=== PATIENT | male | born 1980 | race Caucasian/White ===

== ENCOUNTER 2017-09-03 08:41 | Inpatient (IN) ==
--- NOTE | 2017-09-03 09:40 | Emergency Department Note ---
Disposition Clinical Impression: Cellulitis of foot Disposition: Admitted As Inpatient Condition: Fair Extremity Problem HPI - General Chief complaint: ED Extremity Problem,Nontraumatic Stated complaint: Left Foot problem Time Seen by Provider: 09/03/17 09:14 Source: patient Mode of arrival: ambulatory Limitations: no limitations Nursing Notes Reviewed: Yes Vital Signs Reviewed: Yes - History of Present Illness HPI Narrative: 46-year-old diabetic comes in with left foot pain and redness. He developed a pustule on the sole of the foot out over the heads of the fourth and fifth metatarsals. Also has redness going up the sole of the foot towards the arch. 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 Consistency: constant Injury Location: left, lower extremity Pain Scale: 6 Quality: burning, aching Radiation: none Improves with: nothing Worsens with: weight bearing Associated symptoms: Reports: denies other symptoms - Related Data Home Medications Medication Instructions Recorded Confirmed Lisinopril [Zestril] 10 mg PO DAILY 07/10/16 09/03/17 Sitagliptin Phos/Metformin HCl 1 each PO DAILY 07/10/16 09/03/17 [Janumet 50-1,000 mg Tablet] Insulin Glargine/Lixisenatide 20 units SQ BID 09/03/17 09/03/17 [Soliqua 100 Unit-33 Mcg/ml Pen] Insulin LISPRO [Humalog Kwikpen 0 unit SQ AD 09/03/17 09/03/17 U-100] Allergies Allergy/AdvReac Type Severity Reaction Status Date / Time No Known Allergies Allergy Verified 09/03/17 08:45 All systems ED: reviewed and negative except as stated. Constitutional: Denies: fever, chills, weakness, weight change Eyes: Denies: eye pain, eye discharge, vision change ENT ED: Denies: ear pain, throat pain, dental pain, hearing loss, epistaxis, congestion, dysphagia Cardiovascular: Denies: chest pain, palpitations, dyspnea on exertion, edema, syncope Respiratory: Denies: cough, dyspnea, wheezes, hemoptysis, stridor Gastrointestinal: Denies: abdominal pain, nausea, vomiting, diarrhea, constipation, hematemesis, melena, hematochezia Genitourinary: Denies: urgency, dysuria, frequency, hematuria Musculoskeletal: Reports: arthralgia. Denies: back pain, neck pain, myalgia Integumentary: Denies: rash, abrasion, lesions Neurological: Denies: headache, weakness, numbness, paresthesias, confusion, abnormal gait, vertigo Psychiatric: Denies: anxiety, depression, suicidal thoughts, homicidal thoughts , auditory hallucinations, visual hallucinations Endocrine: Denies: fatigue Hematological/Lymphatic: Denies: easy bleeding, easy bruising Allergic/Immunologic: Denies: facial swelling, urticaria Past Medical History - Past Medical History Medical history: Reports: diabetes, hypertension Psychiatric history: Reports: no psych history - Social History Smoking Status: Never smoker Smokeless Tobacco Status: Yes Alcohol use: Reports: none Drug use: Reports: none Physical Exam - General Limitations: no limitations General appearance: alert, in no apparent distress - Head Head exam: atraumatic, normocephalic, normal inspection - Eye Eye exam: Present: normal appearance, PERRL, EOMI - ENT ENT exam: normal exam, normal oropharynx, mucous membranes moist - Neck Neck exam: Present: normal inspection, full ROM, trachea midline - Chest Chest inspection: Present: normal inspection, symmetric chest wall rise - Respiratory Respiratory exam: Present: normal lung sounds bilaterally - Cardiovascular Cardiovascular exam: Present: regular rate, normal rhythm, normal heart sounds - Abdominal Exam Abdominal exam: Present: soft, Non-Tender. Absent: tenderness, distention, guarding, rebound, rigidity - Expanded Lower Extremity Exam Foot/toe exam: Present: other (Pustule over the fourth and fifth heads of the metatarsals. Redness extending up the arch of the foot toward the ankle.) Neurovascular/Tendon exam: Absent: motor deficit, sensory deficit, tendon deficit Gait: not tested/not observed - Back Exam Back exam: Present: normal inspection, full ROM. Absent: tenderness - Neurological Exam Neurological exam: Present: alert, oriented X3 - Psychiatric Psychiatric exam: Present: normal affect, normal mood - Skin Skin exam: Present: warm, dry, intact, normal color Course Vital Signs Temperature 97.8 F 09/03/17 08:41 Pulse Rate 100 09/03/17 08:41 Respiratory Rate 18 09/03/17 08:41 Blood Pressure 146/97 09/03/17 08:41 O2 Sat by Pulse Oximetry 97 09/03/17 08:41 Temperature 97.3 F L 09/03/17 14:54 Pulse Rate 91 09/03/17 14:54 Respiratory Rate 18 09/03/17 14:54 Blood Pressure 126/71 09/03/17 14:54 O2 Sat by Pulse Oximetry 95 09/03/17 14:54 Oxygen Delivery Oxygen Delivery Room Air Extremity Problem, Nontraumati - Lab Data Result diagrams: 09/03/17 09:36 09/03/17 09:36 Lab Results 09/03/17 09/03/17 09/03/17 Range/Units 09:36 09:36 09:36 WBC 13.7 H (4.3-11.1) K/mcL RBC 5.41 (4.19-5.50) M/mcL Hgb 14.5 (12.9-16.9) g/dL Hct 43.5 (37.5-50.1) % MCV 80.4 L (83.0-100.0) fL MCH 26.8 L (28.0-33.3) pg MCHC 33.3 (31.6-35.5) g/dL RDW 13.0 (11.5-14.5) % Plt Count 280 (140-400) K/mcL MPV 9.4 (9.4-12.4) fL Immature Gran % 0.4 (0-4) % Seg Neutrophils % 71.7 % Lymphocytes % 18.3 % Monocytes % 8.9 % Eosinophils % 0.4 % Basophils % 0.3 % Neutrophils # 9.8 H (1.6-8.9) K/mcL Lymphocytes # 2.5 (0.6-4.6) K/mcL Monocytes # 1.2 (0.0-1.3) K/mcL Eosinophils # 0.1 (0.0-0.6) K/mcL Basophils # 0.0 (0.0-0.2) K/mcL ESR 79 H (0-10) mm/hr Sodium 135 L (136-145) mEq/L Potassium 4.2 (3.5-5.1) mEq/L Chloride 103 (98-107) mEq/L Carbon Dioxide 27 (23-29) mEq/L BUN 14 (6-20) mg/dL Creatinine 0.74 (0.70-1.30) mg/dL Est GFR ( Amer) > 60 (> 60) Est GFR (Non-Af Amer) > 60 (> 60) BUN/Creatinine Ratio 19 (6-26) Glucose 151 H (70-105) mg/dL POC Glucose (58-89) Calculated Osmolality 283 (280-300) Lactic Acid (0.5-2.2) mmol/L Calcium 9.3 (8.6-10.3) mg/dL 09/03/17 09/03/17 Range/Units 11:08 16:32 WBC (4.3-11.1) K/mcL RBC (4.19-5.50) M/mcL Hgb (12.9-16.9) g/dL Hct (37.5-50.1) % MCV (83.0-100.0) fL MCH (28.0-33.3) pg MCHC (31.6-35.5) g/dL RDW (11.5-14.5) % Plt Count (140-400) K/mcL MPV (9.4-12.4) fL Immature Gran % (0-4) % Seg Neutrophils % % Lymphocytes % % Monocytes % % Eosinophils % % Basophils % % Neutrophils # (1.6-8.9) K/mcL Lymphocytes # (0.6-4.6) K/mcL Monocytes # (0.0-1.3) K/mcL Eosinophils # (0.0-0.6) K/mcL Basophils # (0.0-0.2) K/mcL ESR (0-10) mm/hr Sodium (136-145) mEq/L Potassium (3.5-5.1) mEq/L Chloride (98-107) mEq/L Carbon Dioxide (23-29) mEq/L BUN (6-20) mg/dL Creatinine (0.70-1.30) mg/dL Est GFR ( Amer) (> 60) Est GFR (Non-Af Amer) (> 60) BUN/Creatinine Ratio (6-26) Glucose (70-105) mg/dL POC Glucose 140 H (58-89) Calculated Osmolality (280-300) Lactic Acid 0.9 (0.5-2.2) mmol/L Calcium (8.6-10.3) mg/dL
[2017-09-03 09:48] LABS: Basophils % 0.3 %; Eosinophils # 0.1 K/mcL (0.0-0.6); Eosinophils % 0.4 %; Hematocrit 43.5 % (37.5-50.1); Hemoglobin 14.5 g/dL (12.9-16.9); Immature Granulocytes % 0.4 % (0-4); Lymphocytes # 2.5 K/mcL (0.6-4.6); Lymphocytes % 18.3 %; Mean Corpuscular HGB Conc 33.3 g/dL (31.6-35.5); Mean Corpuscular Hemoglobin 26.8 pg (28.0-33.3); Mean Corpuscular Volume 80.4 fL (83.0-100.0); Mean Platelet Volume 9.4 fL (9.4-12.4); Monocytes # 1.2 K/mcL (0.0-1.3); Monocytes % 8.9 %; Neutrophils # 9.8 K/mcL (1.6-8.9); Platelet Count 280 K/mcL (140-400); Red Blood Count 5.41 M/mcL (4.19-5.50); Segmented Neutrophils % 71.7 %
[2017-09-03 10:08] LABS: BUN/Creatinine Ratio 19 (6-26); Blood Urea Nitrogen 14 mg/dL (6-20); Calcium 9.3 mg/dL (8.6-10.3); Carbon Dioxide 27 mEq/L (23-29); Chloride 103 mEq/L (98-107); Glucose 151 mg/dL (70-105); Osmolality,Calculated 283 (280-300); Potassium 4.2 mEq/L (3.5-5.1); Sodium 135 mEq/L (136-145); eGFR For African Americans > 60 (> 60); eGFR For Non-African Americans > 60 (> 60)
[2017-09-03] MEDS ORDERED: Vancomycin 1,000 MG in D5% in Water 250 ML IVPB ONE (11:17)
[2017-09-03] MEDS ORDERED: Naloxone 0.4 MG/ML INJ IVP PRN (12:16)
[2017-09-03] MEDS ORDERED: Dextrose Gel 15 GM/37.5 ML TUBE PO PRN ×2 (12:16)
[2017-09-03] MEDS ORDERED: Ibuprofen 400 MG TABLET PO PRN (12:16)
[2017-09-03] MEDS ORDERED: *HR* Dextrose 50 % in Water (Syg) 50 ML SYRINGE IVP PRN (12:16)
[2017-09-03] MEDS ORDERED: D5% in Water 1,000 ML IVC PRN (12:16)
[2017-09-03] MEDS ORDERED: *HR* HYDROcodone/Acet 5/325 mg TABLET PO PRN (12:16)
--- NOTE | 2017-09-03 12:24 | Internal Med History&Physical ---
<Fransisco Tate - Last Filed: 09/03/17 12:22> Date of Encounter: 09/03/17 Time of Encounter: 12:22 Assessment and Plan (1) Cellulitis of fifth toe of left foot Current visit: Yes Status: Acute H/O chronic Lt foot ulcer of fourth metatarsal to complications from poorly controlled diabetes. He is being followed and managed by Dr. wild. Presents today with new ulceration of the 5th metatarsal with cellulitis extending into the arch of the foot. He was recently placed on Keflex for cellulitis of Lt foot/calve and reports only temporary resolution of symptoms. However, the cellulitis has now returned and is worsening. Additionally, he present today with leukocytosis, tachycardia. He appears to be septic. -blood cultures x 2 now -wound cultures x 2 -Consult Dr. Wild- ED physician reported that they spoke with Dr. Wild who has agreed to see the patient; will need I&D -Start emperic ATB vanc and zosyn -Stat lactic acid (2) Sepsis Current visit: Yes Status: Acute See plan above Qualifiers: Sepsis type: sepsis due to unspecified organism Qualified Code(s): A41.9 - Sepsis, unspecified organism (3) Diabetes Current visit: Yes Status: Acute History of type 2 diabetes. Diabetes is poorly controlled with most recent hemoglobin A1c on 04/28 of 11.7. Presents today with chronic foot ulcers and consultations of diabetes. 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 Continue lisinopril. Qualifiers: Hypertension type: essential hypertension Qualified Code(s): I10 - Essential (primary) hypertension (5) DVT prophylaxis Current visit: Yes Status: Acute Heprin 5000 units SC BID Internal Medicine - H&P: HPI Chief complaint: Lt foot cellulitis Admitted From: Home Plans for Post Hospital Care: Home History of present illness: Mr. Aguilra is a 36 year old male with a PMH of DM, and HTN. No prior h/o MRSA. He presents to [facility] today with Lt foot pain/tenderness and redness. He reports that he has had a chronic wound on the left 4th metatarsal that Dr. wild has been managing. He Reports a debridement was completed on the fourth metatarsal and he was okayed to return to work. However, upon return to work he began experiencing an increase in pain and swelling extending into the fourth and fifth metatarsal as well as going up his sole and towards the arch of the foot. He denies any fever, chills, joint aches or pains, Swelling or tenderness. Additionally, he denies any drainage. X-ray of left foot performed in the emergency department negative for acute osseous abnormalities. Patient has leukocytosis and tachycardia and cellulitis and concern he may be septic. He is being admitted for further monitoring and administration of IV antibiotic therapy as well as potential incision and drainage of chronic left foot wound. Past Med Surg Social Fam HX - Past Medical History Medical history: diabetes, hypertension Psychiatric history: no psych history - Social History Smoking Status: Never smoker Smokeless Tobacco Status: Yes Alcohol use: none Drug use: none - Family History Mother Hx Family Endocrine Disorder: Yes (Diabetes) Internal Medicine - H&P: Meds Lisinopril [Zestril] 10 mg PO DAILY 07/10/16 [History] Sitagliptin Phos/Metformin HCl [Janumet 50-1,000 mg Tablet] 1 each PO DAILY [History] Insulin Glargine/Lixisenatide [Soliqua 100 Unit-33 Mcg/ml Pen] 20 units SQ BID 09/03/17 [History] Insulin LISPRO [Humalog Kwikpen U-100] 0 unit SQ AD 09/03/17 [History] 3 Allergy/AdvReac Type Severity Reaction Status Date / Time No Known Allergies Allergy Verified 09/03/17 08:45 All Systems PM: A 10-system review of systems was performed and is negative for pertinent findings except as documented above in the HPI. - Constitutional Constitutional: no chills, no fever(s), no night sweats - EENT Eyes: no change in vision, no discharge, no pain, no photophobia Ears: no ear discharge, no ear pain, no tinnitus Nose, mouth and throat: no dysphagia, no nasal discharge, no neck pain, no sore throat - Cardiovascular Cardiovascular ROS IM: no chest pain, no diaphoresis, no dyspnea, no lightheadedness, no palpitations, no syncope - Respiratory Respiratory: no cough, no dyspnea, no wheezing, no excessive phlegm production - Gastrointestinal Gastrointestinal: no abdominal pain, no diarrhea, no hematemesis, no hematochezia, no melena, no nausea, no vomiting - Musculoskeletal Musculoskeletal ROS IM: as per HPI, no joint swelling, no muscle weakness, no myalgias, no numbness, no tingling - Integumentary Integumentary IM: as per HPI, erythema, new lesions, non-healing lesions, skin ulcer, sores, no pruritus, no rash, no unusual bruising - Neurological Neurological ROS: no confusion, no convulsions, no focal weakness, no numbness, no tingling, no tremor(s) - Hematologic/Lymphatic Hematologic/Lymphatic: no easy bruising - Constitutional Vitals: Temp Pulse Resp BP Pulse Ox 97.8 F 100 18 146/97 97 09/03/17 08:41 09/03/17 08:41 09/03/17 08:41 09/03/17 08:41 09/03/17 08:41 General appearance: Present: cooperative, A&O X 3, no acute distress, answers questions appropriately - Head Head exam: Present: atraumatic, normocephalic - Eye Eye exam: Present: PERRL, conjuntiva pink, sclera anicteric Pupils: Present: PERRL - Neck Neck exam general surgery: Present: supple, trachea midline. Absent: lymphadenopathy - Respiratory Respiratory exam: Present: CTAB. Absent: accessory muscle use, rales, rhonchi, wheezes - Cardiovascular Cardiovascular exam: Present: RRR, +S1, +S2. Absent: diastolic murmur, gallop, rubs, systolic murmur - GI/Abdominal GI/Abdominal exam: Present: normal bowel sounds, soft, no peritoneal signs. Absent: distended, tenderness - Extremities Exam Extremities exam: Present: normal capillary refill, tenderness (Lt foot), warm, radial pulses palpable and symmetrical. Absent: calf tenderness, cyanotic, pedal edema - Expanded Lower Extremities Exam Foot/Toe exam: Present: erythema, swelling, tenderness, tenderness at base of 5th metatarsal (as well as erythema, and swelling; fluid filled ulceration at base of 5th metatarsal). Absent: normal inspection 1 - Fluid filled ulceration at base of 5th metatarsal. In addition, there is erythema, swelling extending into the left arch. There is also a chronic healing ulcer fourth metatarsal ulcer which she has undergone previous debridement. Cannulation present on fourth metatarsal ulcer - Neurological Exam Neurological exam: Present: CN II-XII intact, oriented X3, no focal deficits. Absent: pronater drift, facial droop, speech deficit - Skin Skin exam: Present: dry, erythema Internal Med - H&P Results - Labs CBC & Chem 7: 09/03/17 09:36 09/03/17 09:36 - Impressions Impressions Foot X-Ray 09/03/17 09:15 IMPRESSION: 1. No acute osseous abnormality involving the left foot. D/ / Reynaldo Narayanan MD / Reynaldo Narayanan MD Interpreting Provider: Reynaldo Narayanan MD <Scott Patton T - Last Filed: 09/03/17 13:15> Date of Encounter: 09/03/17 Internal Medicine - H&P: HPI History of present illness: Mr. Aguilar is a 36 year old male All Systems PM: A 10-system review of systems was performed and is negative for pertinent findings except as documented above in the HPI. - Constitutional Vitals: Temp Pulse Resp BP Pulse Ox 97.8 F 100 20 148/84 97 09/03/17 08:41 09/03/17 08:41 09/03/17 13:07 09/03/17 13:07 09/03/17 08:41 Internal Med - H&P Results - Labs CBC & Chem 7: 09/03/17 09:36 09/03/17 09:36 - Attending Attestation Seen and examined independently Sepsis secondary to Left plantar surface cellulitis with abscess in an uncontrolled diabetic Agree with Zosyn/vanco for gram positive/Gram negative/anerobi and pseudomonas coverage. Podiatry for I and D and culture of pus-filled area. Hemodynamically stable Rest as in [employer] Fransisco Jaegers documentation
--- NOTE | 2017-09-03 17:01 | Podiatry Consult Note ---
Date of Encounter: 09/03/17 Time of Encounter: 15:40 Assessment and Plan (1) Diabetic foot ulcer Current visit: Yes Status: Acute Assessment: Chronic diabetic foot ulcer new new acute infection and cellulitis - tracked lesion medial to chronic lesion Plan: I&D complete at bedside of chronic ulceration and bulla to release drainage, assess underlying wound bed and allow for healing Wound bed clean, healthy granulation tissue noted There is cellulitis to mid foot but no noted areas of sinus tracts and tunneling and no fluctuance however we will continue to monitor- if worsening is noted we will obtain an MRI for further assessment Xray negative for any osseous involvement as noted below Currently receiving empiric zosyn and vancomycin - monitor kidney function Pending wound and blood cultures Pending response to therapy may need formal I&D in OR with . Daily dressing changes- flush with saline- adaptic, 4x4 and kerlex. Qualifiers: Diabetic foot ulcer location: other Diabetes mellitus type: type 2 Laterality: left Non-pressure ulcer stage: with fat layer exposed Qualified Code(s): E11.621 - Type 2 diabetes mellitus with foot ulcer; L97.522 - Non- pressure chronic ulcer of other part of left foot with fat layer exposed; L97.522 - Non-pressure chronic ulcer of other part of left foot with fat layer exposed; L97.522 - Non-pressure chronic ulcer of other part of left foot with fat layer exposed; L97.522 - Non-pressure chronic ulcer of other part of left foot with fat layer exposed (2) Cellulitis of fifth toe of left foot Current visit: Yes Status: Acute (3) Diabetes Current visit: Yes Status: Acute Qualifiers: Diabetes mellitus type: type 2 Diabetes mellitus complication status: with unspecified complications Diabetes mellitus detention insulin use: with detention use Qualified Code(s): E11.8 - Type 2 diabetes mellitus with unspecified complications; 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 Aguilar is a 36 year old male who we have been consulted on regarding an ulceration/cellulitis/bulla to the left foot. Patient is known to Dr.Sessions and podiatry. Patient has known hx of uncontrolled t2dm with neuropathy and charcot of the right foot and HTN. Patient has been under the care of podiatry since June 2017 and being treated for chronic ulcer of left foot sub mt head #5 and right foot charcot. Patient and patients state that wound was improved since offloading and being on keflex. Patients states that he came home from work yesterday and stated that he was having a lot of pain to his foot, states she looked and it looked normal, states that at bedtime he complained again that it was really hurting and she noted a blister and a red streak to his foot. Patient denies any fevers or chills. States pain is severe with palpation but has known hx of neuropathy- states his toes are numb but he does feel his midfoot- patient requesting ha1c be ordered and sent to PCP, states they have been after him to get it. Last a1c was 11.7 which was obtained in February of last year. Blood cultures and wound cultures were obtained in ED Patient was started on empiric Zosyn and Vancomycin Admit wbc 13.7 / neutrophils 9.8/ Temp 97.8 Past Med Surg Social Fam HX - Past Medical History Medical history: diabetes, hypertension Psychiatric history: no psych history - Social History Smoking Status: Never smoker Smokeless Tobacco Status: Yes Alcohol use: none Drug use: none - Family History Mother History Unknown: Yes Hx Family Endocrine Disorder: Yes Medications and Allergies Lisinopril [Zestril] 10 mg PO DAILY 07/10/16 [History] Sitagliptin Phos/Metformin HCl [Janumet 50-1,000 mg Tablet] 1 each PO DAILY [History] Insulin Glargine/Lixisenatide [Soliqua 100 Unit-33 Mcg/ml Pen] 20 units SQ BID 09/03/17 [History] Insulin LISPRO [Humalog Kwikpen U-100] 0 unit SQ AD 09/03/17 [History] 3 Allergy/AdvReac Type Severity Reaction Status Date / Time No Known Allergies Allergy Verified 09/03/17 08:45 All Systems Reviewed: A 10-system review of systems was performed and is negative for pertinent findings except as documented above in the HPI. Physical Exam - Constitutional Vitals: Temp Pulse Resp BP Pulse Ox 97.3 F L 91 18 126/71 95 01/23/18 14:54 09/03/17 14:54 09/03/17 14:54 09/03/17 14:54 09/03/17 14:54 Exam: Awake alert and oriented x3 Pulses palpable +2/4 DP/PT Warm toes to tibia Cap refill <3 seconds to all toes Mild edema- non pitting Upon inspection: Chronic ulceration sub mt head #5 left, surrounding hyperkeratosis to wound There is a new lesion just medial to chronic ulceration- bulla lesion- appearance of thick bloody fluid within. There is no open, freely draining wound. There is cellulitis extending from medially from lesion along plantar aspect of foot to arch of foot. There is warmth noted to this area. No palpable fluctance noted. Tenderness to palpation After I&D of chronic ulcer, hyperkeratosis and new bulla lesion there is connection and a tract from chronic to new lesion. There was a moderate amount of thick, gaytan, bloody fluid expressed from wound. No odor. No undermining, sinus tracts or tunneling noted toward medial foot. Wound bed under bulla measures 2.5cmx2.5cmx0.2cm with healthy granulation tissue- chronic wound bed 0.3cmx0.3cmx0.2cm tracking under small flap of attached skin to new bulla site. Results - Labs Result Diagrams: 09/04/17 03:49 09/04/17 03:49 Labs: Abnormal lab results WBC 13.7 K/mcL (4.3-11.1) H 09/03/17 09:36 MCV 80.4 fL (83.0-100.0) L 09/03/17 09:36 MCH 26.8 pg (28.0-33.3) L 09/03/17 09:36 Neutrophils # 9.8 K/mcL (1.6-8.9) H 09/03/17 09:36 ESR 79 mm/hr (0-10) H 09/03/17 09:36 Sodium 135 mEq/L (136-145) L 09/03/17 09:36 Glucose 151 mg/dL (70-105) H 09/03/17 09:36 POC Glucose 140 (58-89) H 09/03/17 16:32 All other labs normal. Consult Discharge Plan - Plan Referrals: Juan Kaufman MD [Primary Care Provider] -
--- NOTE | 2017-09-03 17:16 | Procedure Note ---
Date of procedure: 09/03/17 Pre-op diagnosis: diabetic foot ulcer Post-op diagnosis: same Procedure: Incision and drainage of bulla of left foot and debridement of hyperkeratotic skin surrounding ulceration sub mt head #5 Field was prepped Skin painted with betadine and allowed to dry Timeout taken- correct patient, foot, wound, no allergies Sharp debridement of all hyperkeratotic skin surrounding ulceration was complete using #15 blade- small sinus tract noted from ulcer extending into new bulla- not able to completely tract however there is easy expression of blood filled fluid from bulla into chronic ulceration Small incision made into devitalized tissue of bulla, expression of thick, gaytan , bloody fluid from wound. Devitalized tissue retracted using pickups and trimmed back using skin tissue nippers. All intact skin left in place. There is no noted undermining/sinus tracts to wound bed below bulla lesion. Scant serosang drainage to both wounds. No odor. Surrounding warmth and tenderness Patient tolerated well No complaints No bleeding at finish of procedure Cultures were already obtained in ED Flushed with saline, adaptic 4x4 and kerlex were applied. Monitor for any changes Anesthesia: none Surgeon: Caitlyn Pradhan Was there an dietitian assistant present: No Estimated blood loss (cc): 5 Specimen: release of gaytan bloody fluid- none sent- already obtained cultures Pathology: none sent Condition: stable Disposition: no change
[2017-09-03] MEDS: Piperacillin/Tazobactam 3.375 GM/200 ML BAG IVPB SCH ×2 (17:54→23:55)
[2017-09-03] MEDS: *HR* Heparin 5,000 UNIT/ML VIAL SQ SCH (17:55)
[2017-09-03] MEDS: Insulin LISPRO 300 UNITS/3 ML VIAL SQ SCH ×2 (17:57→22:15)
[2017-09-03] MEDS ORDERED: INSULIN GLARGINE SQ SCH (21:00)
[2017-09-03] MEDS ORDERED: LIXISENATIDE SQ SCH (21:00)
[2017-09-03] MEDS: Insulin DETEMIR 100 UNIT/ML X5UNITS SQ SCH (22:20)
[2017-09-04 04:59] LABS: Basophils # 0.1 K/mcL (0.0-0.2); Basophils % 0.4 %; Eosinophils # 0.1 K/mcL (0.0-0.6); Eosinophils % 0.8 %; Hematocrit 40.9 % (37.5-50.1); Hemoglobin 13.6 g/dL (12.9-16.9); Immature Granulocytes % 0.4 % (0-4); Lymphocytes # 3.6 K/mcL (0.6-4.6); Lymphocytes % 26.8 %; Mean Corpuscular HGB Conc 33.3 g/dL (31.6-35.5); Mean Corpuscular Hemoglobin 26.7 pg (28.0-33.3); Mean Corpuscular Volume 80.4 fL (83.0-100.0); Mean Platelet Volume 9.7 fL (9.4-12.4); Monocytes # 1.2 K/mcL (0.0-1.3); Neutrophils # 8.3 K/mcL (1.6-8.9); Platelet Count 253 K/mcL (140-400); Red Blood Count 5.09 M/mcL (4.19-5.50); Red Cell Distribution Width 12.9 % (11.5-14.5); Segmented Neutrophils % 62.6 %
[2017-09-04 05:25] LABS: BUN/Creatinine Ratio 14 (6-26); Blood Urea Nitrogen 12 mg/dL (6-20); Calcium 8.9 mg/dL (8.6-10.3); Carbon Dioxide 28 mEq/L (23-29); Chloride 103 mEq/L (98-107); Glucose 169 mg/dL (70-105); Osmolality,Calculated 288 (280-300); Potassium 3.7 mEq/L (3.5-5.1); Sodium 137 mEq/L (136-145); eGFR For African Americans > 60 (> 60); eGFR For Non-African Americans > 60 (> 60)
[2017-09-04] MEDS: *HR* Heparin 5,000 UNIT/ML VIAL SQ SCH ×2 (05:32→17:52)
[2017-09-04] MEDS: Insulin LISPRO 300 UNITS/3 ML VIAL SQ SCH ×4 (08:12→21:03)
[2017-09-04] MEDS: Piperacillin/Tazobactam 3.375 GM/200 ML BAG IVPB SCH ×3 (08:14→23:37)
--- NOTE | 2017-09-04 08:48 | Internal Med Progress Note ---
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 if his cellulites does not improve, will get a MRI of Foot to r/o Osteo / Abscess (2) Sepsis Current Visit: Yes Status: Acute Assessment and plan: He did meet mild sepsis / SIRS criteria with elevated WBC, source of inf as diabetic foot ulcer cont empirical abx Qualifiers: Sepsis type: sepsis due to unspecified organism Qualified Code(s): A41.9 - Sepsis, unspecified organism (3) Diabetes Current Visit: Yes Status: Acute Assessment and plan: Poorly controlled pt stated lately his BS are well controlled at home will f/u on HbA11C cont ISS + Levemir Qualifiers: Diabetes mellitus type: type 2 Diabetes mellitus complication status: with unspecified complications Diabetes mellitus halfway insulin use: with exterminator termite use Qualified Code(s): E11.8 - Type 2 diabetes mellitus with unspecified complications; Z79.4 - [facility] (current) use of insulin; 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 Aguilar is a 36 year old male with a PMH of DM, and HTN. No prior h/o MRSA. He presents to [facility] ER with Lt foot pain/tenderness and redness. He reports that he has had a chronic wound on the left 4th metatarsal that Dr. beckford has been managing. He Reports a debridement was completed on the fourth metatarsal and he was okayed to return to work. However, upon return to work he began experiencing an increase in pain and swelling extending into the fourth and fifth metatarsal as well as going up his sole and towards the arch of the foot. Pt was admitted in the hospital and started him on empirical abx with IV Zosyn and Vancomycin. He was seen by Dr. Beckford, who did I & D on 09/03/17. Today he is feeling little better. Still has mild erythema over Left foot, pain tolerable with meds. - Constitutional Vitals: Temp Pulse Resp BP Pulse Ox 98.1 F 72 14 98/63 97 09/04/17 06:34 09/04/17 06:34 09/04/17 06:34 09/04/17 06:34 09/04/17 06:34 General appearance: Present: cooperative, A&O X 3, no acute distress, answers questions appropriately - Head Head exam: Present: atraumatic, normal inspection - Neck Neck exam general surgery: Present: supple - Respiratory Respiratory exam: Present: decreased breath sounds. Absent: rales, respiratory distress, rhonchi, wheezes - Cardiovascular Cardiovascular exam: Present: RRR, +S1, +S2. Absent: tachycardia - GI/Abdominal GI/Abdominal exam: Present: normal bowel sounds, soft. Absent: rebound, rigid, tenderness - Extremities Exam Extremities exam: Present: tenderness (Left foot plantar region). Absent: calf tenderness, pedal edema Additional comments: 1.5cm open wound at the botto of Left 4th metatarsal.. nice granulation tissue noticedover the wound bed. Still has moderate erythema and swelling over Left foot arch - Back Exam Back exam: Absent: CVA tenderness (L), CVA tenderness (R) Internal Medicine: Result - Labs CBC & Chem 7: 09/04/17 03:49 09/04/17 03:49 Labs: Short CBC 09/04/17 Range/Units 03:49 WBC 13.3 H (4.3-11.1) K/mcL Hgb 13.6 (12.9-16.9) g/dL Hct 40.9 (37.5-50.1) % Plt Count 253 (140-400) K/mcL Neutrophils # 8.3 (1.6-8.9) K/mcL BMP 09/04/17 03:49 Sodium 137 Potassium 3.7 Chloride 103 Carbon Dioxide 28 BUN 12 Creatinine 0.85 Glucose 169 H Calcium 8.9 Consult Discharge Plan - Plan Referrals: Juan Kaufman MD [Primary Care Provider] -
--- NOTE | 2017-09-04 11:10 | Podiatry Progress Note ---
Date of Encounter: 09/04/17 Time of Encounter: 10:00 - Assessment and Plan (1) Diabetic foot ulcer Current Visit: Yes Status: Acute Assessment: Chronic diabetic foot ulcer new new acute infection and cellulitis - tracked lesion medial to chronic lesion Plan: I&D complete at bedside on 09/03/17 of chronic ulceration and bulla to release drainage, assess underlying wound bed and allow for healing Wound bed clean, healthy granulation tissue noted Ulcer remains stable upon assessment today- no new noted drainage or lesions. There is continued cellulitis to mid foot but no noted areas of sinus tract or tunneling from ulcer and no fluctuance however it remains very tender to palpation and erythema, warmth and edema remain unchanged. I would expect a more dramatic drop in white count as patient has been on IV antibiotics for 24 hours and had a I&D yesterday. At this time we will order an ultrasound of the LLE with possibility of a MRI pending results. Xray negative for any osseous involvement as noted below Currently receiving empiric zosyn and vancomycin - continue to monitor kidney function Pending wound and blood cultures Pending response to therapy, US and possible MRI results may need formal I&D in OR with - patient aware of plan Daily dressing changes- flush with saline- adaptic, 4x4 and kerlex. Qualifiers: Diabetic foot ulcer location: other Diabetes mellitus type: type 2 Laterality: left Non-pressure ulcer stage: with fat layer exposed Qualified Code(s): E11.621 - Type 2 diabetes mellitus with foot ulcer; L97.522 - Non- pressure chronic ulcer of other part of left foot with fat layer exposed; L97.522 - Non-pressure chronic ulcer of other part of left foot with fat layer exposed; L97.522 - Non-pressure chronic ulcer of other part of left foot with fat layer exposed; L97.522 - Non-pressure chronic ulcer of other part of left foot with fat layer exposed (2) Cellulitis of fifth toe of left foot Current Visit: Yes Status: Acute (3) Diabetes Current Visit: Yes Status: Acute Qualifiers: Diabetes mellitus type: type 2 Diabetes mellitus complication status: with unspecified complications Diabetes mellitus termite technician insulin use: with assisted use Qualified Code(s): E11.8 - Type 2 diabetes mellitus with unspecified complications; Z79.4 - half-way (current) use of insulin; Z79.4 - half-way ( current) use of insulin; 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 Aguilar is a 36 year old male who we have been consulted on regarding an ulceration/cellulitis/bulla to the left foot. Patient underwent bedside I&D of ulcer and bulla lesion of the left foot yesterday. Upon arrival today dressing is intact to foot. States his pain has decreased some since yesterday. Patient denies any fevers, chills, n/v or flu like symptoms. Blood cultures and wound cultures were obtained in ED- pending Patient was started on empiric Zosyn and Vancomycin Admit wbc 13.7 now 13.3/ ESR 79 /Creat 0.74/ Temp 98.1 Patient also requested updated a1c-7.0 Objective - Vital Signs Vital Signs: Vital Signs Temp Pulse Resp BP Pulse Ox 09/04/17 06:34 98.1 F 72 14 98/63 97 09/04/17 03:19 97.7 F 80 15 98/57 94 09/03/17 23:11 98.3 F 90 15 138/82 93 09/03/17 19:06 97.4 F L 111 16 154/89 93 Intake and Output 09/03/17 09/04/17 09/04/17 23:59 07:59 15:59 Intake Total 320 / 320 200 / 200 240 / 240 Output Total 0 / 0 0 / 0 Balance 320 / 320 200 / 200 240 / 240 Intake: IV Fluids 200 / 200 200 / 200 Zosyn Premix 3.375 GM/200 ML 3. 200 / 200 200 / 200 375 gm In 200 ml @ 50 mls/hr IVPB Q8HR [facility] Rx#:[id number] Oral 120 / 120 0 / 0 240 / 240 Output: Urine 0 / 0 0 / 0 Other: Meal Dinner Breakfast Percent of Meal Consumed 100% 100% Blood Glucose* 175 133 - Exam Exam: Awake alert and oriented Pulses palpable DP/PT warm toes to tibia Sensation to moderate touch midfoot and proximal- minimal sensation to toes Cap refill <3 seconds No calf pain with manual compression Edema noted, non pitting Ulcerated areas sub mt head #5 remain unchanged since 09/03/17 assessment. No new drainage. No new lesions. No odor. Cellulitis remains unchanged from ulceration extending midfoot into arch of left foot- warmth, tenderness, edema and erythema noted. Tenderness to palpation. No fluctance to palpation. - Lab Result Diagrams: 09/04/17 03:49 09/04/17 03:49 Labs: Abnormal lab results WBC 13.3 K/mcL (4.3-11.1) H 09/04/17 03:49 MCV 80.4 fL (83.0-100.0) L 09/04/17 03:49 MCH 26.7 pg (28.0-33.3) L 09/04/17 03:49 ESR 79 mm/hr (0-10) H 09/03/17 09:36 Glucose 169 mg/dL (70-105) H 09/04/17 03:49 POC Glucose 140 (58-89) H 09/03/17 16:32 Hemoglobin A1c 7.0 % (-5.6) H 09/04/17 03:49 Consult Discharge Plan - Plan Referrals: Juan Kaufman MD [Primary Care Provider] -
[2017-09-04] MEDS: Insulin DETEMIR 100 UNIT/ML X5UNITS SQ SCH ×2 (12:07→21:06)
[2017-09-05] MEDS: *HR* Heparin 5,000 UNIT/ML VIAL SQ SCH ×3 (05:15→19:17)
[2017-09-05] MEDS ORDERED: Insulin LISPRO 300 UNITS/3 ML VIAL SQ SCH ×2 (07:56)
[2017-09-05] MEDS: Piperacillin/Tazobactam 3.375 GM/200 ML BAG IVPB SCH (08:01)
[2017-09-05] MEDS ORDERED: Insulin DETEMIR 100 UNIT/ML X5UNITS SQ SCH (09:00)
[2017-09-05] MEDS ORDERED: Vancomycin 2,000 MG in D5% in Water 500 ML IVPB SCH (09:00)
--- NOTE | 2017-09-05 09:05 | Internal Med Progress Note ---
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 mild bone marow edema over 5th metatarsal bone, concerned for osteomyelitis May need to go to OR..Will talk to Dr. Wild (2) Sepsis Current Visit: Yes Status: Acute Assessment and plan: He did meet mild sepsis / SIRS criteria with elevated WBC, source of inf as diabetic foot ulcer cont empirical abx Qualifiers: Sepsis type: sepsis due to unspecified organism Qualified Code(s): A41.9 - Sepsis, unspecified organism (3) Diabetes Current Visit: Yes Status: Acute Assessment and plan: pt stated lately his BS are well controlled at home His current HbA1C 7.0 fairly controlled now.. changed ISS to home regimen Inc Levemir to 30 U BID Holding PO meds until we get further information about surgery Pt and his wanted to use their home Insulins.. talked to them with pharmacist, and explained that we can not use their home insulin here in the hospital. They understand the policies. 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 Aguilar is a 36 year old male with a PMH of DM, and HTN. No prior h/o MRSA. He presents to [facility] ER with Lt foot pain/tenderness and redness. He reports that he has had a chronic wound on the left 4th metatarsal that Dr. wild has been managing. He Reports a debridement was completed on the fourth metatarsal and he was okayed to return to work. However, upon return to work he began experiencing an increase in pain and swelling extending into the fourth and fifth metatarsal as well as going up his sole and towards the arch of the foot. Pt was admitted in the hospital and started him on empirical abx with IV Zosyn and Vancomycin. He was seen by Dr. Wild, who did I & D on 09/03/17. Today he is feeling little better. Still has mild erythema over Left foot plantar region. Pain tolerable with meds. - Constitutional Vitals: Temp Pulse Resp BP Pulse Ox 98.0 F 78 16 134/80 97 09/05/17 08:24 09/05/17 08:24 09/05/17 08:24 09/05/17 08:24 09/05/17 08:24 General appearance: Present: cooperative, A&O X 3, no acute distress, answers questions appropriately - Head Head exam: Present: atraumatic, normal inspection - Neck Neck exam general surgery: Present: supple - Respiratory Respiratory exam: Present: decreased breath sounds. Absent: rales, respiratory distress, rhonchi, wheezes - Cardiovascular Cardiovascular exam: Present: RRR, +S1, +S2. Absent: tachycardia - GI/Abdominal GI/Abdominal exam: Present: normal bowel sounds, soft. Absent: rebound, rigid, tenderness - Extremities Exam Extremities exam: Absent: pedal edema, tenderness Additional comments: 1.5cm open wound at the bottom of Left 4th metatarsal.. nice granulation tissue noticed over the wound bed. Still has moderate erythema and swelling over Left foot arch - Psychiatric Psychiatric exam: Present: normal affect, normal mood Internal Medicine: Result - Labs CBC & Chem 7: 09/04/17 03:49 09/04/17 03:49 - Impressions Impressions Extremity Ultrasound 09/04/17 11:00 IMPRESSION: 1. Ill-defined hypoechoic area noted along the incision of the posterior aspect of the left foot, at the area of interest, which may represent a focal area of cellulitis versus early abscess. No drainable fluid collection is identified at this time. D/ / 09/04/2017 11:52:56 Steven Ledesma MD / perfecto Interpreting Provider: Steven Ledesma MD Foot MRI 09/04/17 15:39 IMPRESSION: 1. Suspected shallow soft tissue ulceration plantar to the 5th MTP joint with a small 8 x 4 x 6 mm fluid collection in the underlying soft tissues. Abscess not excluded. No sinus tract. 2. Mild bone marrow edema with normal T1 signal in the plantar aspect of the 5th metatarsal head compatible with noninfectious reactive osteitis versus early osteomyelitis. D/ / Ashwin Saba MD / Ashwin Saba MD Interpreting Provider: Ashwin Saba MD Consult Discharge Plan - Plan Referrals: Juan Kaufman MD [Primary Care Provider] -
[2017-09-05] MEDS: Insulin DETEMIR 100 UNIT/ML X5UNITS SQ SCH ×2 (09:06→21:36)
[2017-09-05 09:32] LABS: Basophils % 0.3 %; Eosinophils # 0.1 K/mcL (0.0-0.6); Eosinophils % 0.9 %; Hematocrit 42.9 % (37.5-50.1); Hemoglobin 14.5 g/dL (12.9-16.9); Immature Granulocytes % 0.3 % (0-4); Lymphocytes # 2.8 K/mcL (0.6-4.6); Lymphocytes % 24.9 %; Mean Corpuscular HGB Conc 33.8 g/dL (31.6-35.5); Mean Corpuscular Hemoglobin 27.1 pg (28.0-33.3); Mean Platelet Volume 9.5 fL (9.4-12.4); Monocytes # 0.9 K/mcL (0.0-1.3); Monocytes % 8.3 %; Neutrophils # 7.2 K/mcL (1.6-8.9); Platelet Count 273 K/mcL (140-400); Red Blood Count 5.36 M/mcL (4.19-5.50); Red Cell Distribution Width 13.1 % (11.5-14.5); Segmented Neutrophils % 65.3 %
[2017-09-05 09:47] LABS: BUN/Creatinine Ratio 13 (6-26); Blood Urea Nitrogen 10 mg/dL (6-20); Calcium 9.5 mg/dL (8.6-10.3); Carbon Dioxide 29 mEq/L (23-29); Chloride 102 mEq/L (98-107); Glucose 210 mg/dL (70-105); Osmolality,Calculated 287 (280-300); Potassium 4.5 mEq/L (3.5-5.1); Sodium 136 mEq/L (136-145); eGFR For African Americans > 60 (> 60); eGFR For Non-African Americans > 60 (> 60)
[2017-09-05] MEDS: Insulin LISPRO 300 UNITS/3 ML VIAL SQ SCH ×3 (11:56→16:29)
[2017-09-05] MEDS ORDERED: Aminoglycoside Consult 1 EACH MC ONE (12:24)
--- NOTE | 2017-09-05 13:35 | Infectious Disease Consult ---
Date of Encounter: 09/05/17 Time of Encounter: 13:28 Assessment and Plan (1) Sepsis Status: Acute Assessment and plan: Patient was tachycardic, leukocytosis 13.7 on admission. Tachycardia and leukocytosis has resolved. Sepsis secondary to cellulitis of left foot with history of chronic left foot ulceration in the setting of diabetes Qualifiers: Sepsis type: methicillin susceptible Staphylococcus aureus Qualified Code(s ): A41.01 - Sepsis due to Methicillin susceptible Staphylococcus aureus (2) Cellulitis of fifth toe of left foot Status: Acute Assessment and plan: Patient reports having callus on plantar aspect of left foot at the fifth MTP. He developed a crack in the callus 4 months ago and became infected. Started on Keflex by PCP for 2 weeks. Thereafter patient is followed by podiatry who removed the callus and discovered ulceration Patient reports ulceration has been improving however day before admission after coming from work he noticed increasing pain in his left foot. There is more erythema, warmth and a blister. X-ray of left foot was negative for infection, abnormality. Ultrasound of left lower extremity noted cellulitis versus abscess. MRI of the left lower extremity showed fifth MTP joint soft tissue ulceration without sinus tract with bone marrow edema possible osteomyelitis. Status post bedside I&D by podiatry Blood cultures negative. Wound culture positive for MSSA Patient started on vancomycin and Zosyn on 09/03 Patient pain, redness has improved since admission. He is able to bear weight on his left foot. Plan: Await podiatry recommendations based on MRI which indicates possible osteomyelitis. Continue vancomycin 2000 mg daily and Zosyn 3.375 mg every 8 hours. Creatinine clearance is 190. Monitor renal function. (3) Diabetic foot ulcer Status: Acute Qualifiers: Diabetic foot ulcer location: other Diabetes mellitus type: type 2 Laterality: left Non-pressure ulcer stage: with fat layer exposed Qualified Code(s): E11.621 - Type 2 diabetes mellitus with foot ulcer; L97.522 - Non- pressure chronic ulcer of other part of left foot with fat layer exposed; L97.522 - Non-pressure chronic ulcer of other part of left foot with fat layer exposed; L97.522 - Non-pressure chronic ulcer of other part of left foot with fat layer exposed; L97.522 - Non-pressure chronic ulcer of other part of left foot with fat layer exposed (4) Diabetes Status: Acute Assessment and plan: A1c 7.0. Diabetes mellitus is under controlled. Congratulated patient on this improvement. Qualifiers: Diabetes mellitus type: type 2 Diabetes mellitus complication status: with unspecified complications Diabetes mellitus jail insulin use: with jail use Qualified Code(s): E11.8 - Type 2 diabetes mellitus with unspecified complications; Z79.4 - prison (current) use of insulin; Z79.4 - long term care pharmacist ( current) use of insulin; Z79.4 - prison (current) use of insulin; Z79.4 - prison (current) use of insulin (5) HTN (hypertension) Status: Acute Assessment and plan: Controlled. Qualifiers: Hypertension type: essential hypertension Qualified Code(s): I10 - Essential (primary) hypertension (6) DVT prophylaxis Status: Acute Assessment and plan: Heparin subcutaneous. Infectious Disease HPI - Data of Consult Patient: new to practice Consult date: 09/05/17 Requesting Physician: Elen Dhaliwal MD Primary Care Provider: Juan Kaufman MD - Consult Narrative Reason for consult: MSSA cellulitis History of present illness: Mr. Aguilar is a 36 year old male history of uncontrolled diabetes, hypertension, diabetic neuropathy, Charcot right foot, chronic ulceration of left foot presented to [facility] on 09/03 with chief complaint of left foot pain and tenderness. Consult for infectious disease was placed on 09/05/2017 for left diabetic foot wound/cellulitis/possible osteomyelitis. Patient reports 4 months ago had a callus forming on plantar aspect of right foot location fifth digit metatarsal phalangeal joint. The callus at a crack became infected and primary care physician started patient on Keflex which she took for 2 weeks. Thereafter patient's podiatry remove the callus and found an underlying ulcer. Patient has been followed by podiatry for the last 4 months stating his wound had improved. However day before admission patient started having pain in his left foot with red streak, blister. Patient was unable to bear any weight on the left foot and had severe palpation to pain. On admission patient was afebrile, tachycardic, respiratory rate of 18, normotensive. White blood cell count was 13.7. ESR was 79. Lactic acid is 0.9. X-ray of the left foot showed no acute abnormalities. Patient also had ultrasound of the left lower extremity which showed signs of possible cellulitis versus abscess. He underwent MRI of the left foot on 09/04 which identified the fifth MTP joint soft tissue ulceration without a sinus tract with bone marrow edema, possible osteomyelitis. Patient has had 2 blood cultures taken in 09/03 that are been negative. Patient underwent bedside I&D on 09/03 by podiatry which started cellulitis, sinus tract from old ulceration to a new bulla. Wound cultures taken from I&D have grown MSSA. Patient on admission was started on vancomycin and Zosyn. Today patient states his pain has improved dramatically. He is able to bear weight on his left lower extremity. The erythema and warmth has also improved. Patient is afebrile, heart rate 89, respiratory rate 16. White blood cell count has improved from 13.7-11. CC: Elen Dhaliwal MD Past Med Surg Social Fam HX - Past Medical History Medical history: diabetes, hypertension Psychiatric history: no psych history - Social History Smoking Status: Never smoker Smokeless Tobacco Status: Yes Alcohol use: none Drug use: none - Family History Mother History Unknown: Yes Hx Family Endocrine Disorder: Yes Infectious Disease-CN:Meds Lisinopril [Zestril] 10 mg PO DAILY 07/10/16 [History] Sitagliptin Phos/Metformin HCl [Janumet 50-1,000 mg Tablet] 1 each PO DAILY [History] Insulin Glargine/Lixisenatide [Soliqua 100 Unit-33 Mcg/ml Pen] 20 units SQ BID 09/03/17 [History] Insulin LISPRO [Humalog Kwikpen U-100] 0 unit SQ AD 09/03/17 [History] 3 Allergy/AdvReac Type Severity Reaction Status Date / Time No Known Allergies Allergy Verified 09/03/17 08:45 Review of systems: Constitutional: Denies fever, chills HEENT: Denies headache, vision changes, neck pain, sore throat, rhinorrhea Heart: Denies chest pain palpitations Lungs: Denies shortness of breath cough Abdomen: Denies abdominal pain nausea vomiting diarrhea Back: Denies back pain Kidney: Denies dysuria, hematuria Skin: warm and dry Extremities: Reports left lower extremity pain, swelling, erythema Neuro: Denies numbness, and tingling Exam - Constitutional Vitals: Temp Pulse Resp BP Pulse Ox 98.0 F 89 16 130/72 97 09/05/17 11:00 09/05/17 11:00 09/05/17 11:00 09/05/17 11:00 09/05/17 11:00 - Additional findings Additional findings: General: without distress, obese HEENT: Head atraumatic, normocephalic, EOMI, PERRL, neck nontender to palpation , absent lymphadenopathy, Moist Mucous Membranes, Heart: Regular rate and rhythm with no murmur Lungs: Clear to auscultation bilaterally Abdomen: Soft nontender, nondistended positive bowel sounds Skin: warm and dry. Erythema of the plantar aspect of left foot. Diabetic ulcer on plantar aspect of left foot at the fifth MTP. Extremities: Absent pedal edema, there is no pain to palpation the patient's left foot. Neuro: Alert and oriented 3. Vascular: Pedal and radial pulses 2 out of 4 Infectious Disease CN: Results - Labs CBC & Chem 7: 09/05/17 09:16 09/05/17 09:16 Consult Discharge Plan - Plan Referrals: Juan Kaufman MD [Primary Care Provider] - - Attending Attestation I examined this patient and my medical decision-making was reviewed with the Resident Physician. I agree with the documented findings, disposition and treatment plan as described except to the extent set forth below. Patient is a 36-year-old gentleman who came in to [facility] on 09/03/2017 with left foot pain and redness, we are consulted on 09/05/2017 for diabetic foot ulcer infection for antibiotics recommendation. Patient is a 36-year-old gentleman with past medical history of diabetes mellitus type 2 that is insulin-dependent for 10 years, complicated with diabetic retinopathy and some diabetic nephropathy and some peripheral vascular disease who also has had previous diabetic foot ulcer that 4 months ago. 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 Patient lives with his and 2 children and has 2 dogs at home. Patient tells me that about 4 months ago he had a blister on his left foot. Patient was evaluated by podiatry Dr. grider and he drained the blister and he had an ulceration that was being followed by podiatry. Patients blisters culture grew MSSA and was given 10 days of Keflex. Patient states that the blister was healing properly and last time he saw podiatry was 3 weeks ago where he had a very small ulceration about 3-4 mm as per patient. There was no erythema no drainage no other issues. Patient was told he can go back to work if he has a diabetic shoe but apparently he denies any had a regular shoe so he went back to work. On 09/02/2017, patient while at work stated that he felt some pain in his left foot. Patient came home and his examined his foot and initially she didnt notice anything. Within 2-3 hours she made dinner she came back to see him and she noted that he had a blood blister. Patient tells me that she tried to poke it with the diabetic and needle but nothing came out. Patient states the pain was so severe that he couldnt walk anymore so he decided to come to the emergency department for evaluation. Patient denies any fevers or chills at home denies any night sweats. Patient denied any nausea or vomiting denies any chest pain or shortness of breath denies any urinary symptoms. Patient denied any drainage from the wound site. Since admission, patient has been afebrile, he has been tachycardic and had some leukocytosis with a WBC of 13.4 and normal differential no bandemia. Patient did not have any lactic acidosis. Patient had normal kidney function. Workup revealed possible osteomyelitis versus osteitis on the fifth phalangeal joint on the MRI done on 09/04/2017. Patient had a bedside I&D done and Intra-Op cultures were sent and theyre growing MSSA. Blood cultures were also drawn and have been negative to date. Patient was started on vancomycin and Zosyn, were asked to evaluate the patient and for make further recommendations. Assessment and plan: 1- sepsis: Patient had 2 SIRS criteria on admission Resolved Secondary to #2 2left foot cellulitis with small abscess and osteomyelitis of the fifth metatarsal Causative organism is MSSA status post I&D at bedside on 09/04/2017 After reviewing the MRI and discussing at length with Dr. wild, and the fact that the patient had previous infection with the same causative organism, we are concerned that there is early osteomyelitis. Patient is young is 36 years old and after long discussion with the patient and his , they want aggressive treatment because he is very concerned that he might lose his foot. I agree with current plan and we will treat with IV antibiotics for 6 weeks. DC vancomycin and Zosyn since we already have a causative organism. Well probably start either cefazolin 1 g IV every 8 hours versus nafcillin 12 g continuous pump every 24 hours. We will asked the patient to see which is his preference as an outpatient. Patient will need a PICC line prior to discharge. While on antibiotic patient will need to have weekly CBC, BMP, ESR and CRP. Patient needs to follow-up with me in clinic in 2 weeks. Monitor labs and for drug toxicity. Patient advised that he needs adequate glucose control for healing process and proper foot hygiene. Patient also to follow-up with podiatry as an outpatient.
[2017-09-05 16:16] LABS: Acinetobacter baumannii by PCR Not Detected (Not Detect); Candida albicans by PCR Not Detected (Not Detect); Candida glabrata by PCR Not Detected (Not Detect); Candida krusei by PCR Not Detected (Not Detect); Candida parapsilosis by PCR Not Detected (Not Detect); Candida tropicalis by PCR Not Detected (Not Detect); Enterococcus by PCR Not Detected (Not Detect); Escherichia coli by PCR Not Detected (Not Detect); Klebsiella oxytoca by PCR Not Detected (Not Detect); Klebsiella pneumoniae by PCR Not Detected (Not Detect); Pseudomonas aeruginosa by PCR Not Detected (Not Detect); Serratia marcescens by PCR Not Detected (Not Detect); Staphylococcus aureus by PCR Not Detected (Not Detect); Streptococcus agalactiae(B)PCR Not Detected (Not Detect); Streptococcus by PCR Not Detected (Not Detect); Streptococcus pneumoniae PCR Not Detected (Not Detect); Streptococcus pyogenes (A) PCR Not Detected (Not Detect); blaKPC Carbapenem-Resist Gene Not Detected (Not Detect); mecA Methicillin-Resist Gene ***DETECTED*** (Not Detect); vanA/B Vancomycin-Resist Genes Not Detected (Not Detect)
[2017-09-05] MEDS ORDERED: Nafcillin 3,000 MG in D5% in Water 100 ML IVPB SCH (18:00)
--- NOTE | 2017-09-05 20:55 | Podiatry Progress Note ---
Date of Encounter: 09/05/17 Time of Encounter: 18:54 - Assessment and Plan (1) Cellulitis of fifth toe of left foot Current Visit: Yes Status: Acute The patient was instructed that at this time there does not appear to be a deep abscess, and minimal bony destruction is noted. The MRI however does indicate possible osteomyelitis of the fifth digit. The patient was instructed that surgically this could be removed or we could try and treated with IV antibiotics. The patient relates that he would like to treat it with antibiotics. Antibiotics will be prescribed per infectious disease and the patient will follow up 1 week after discharge in clinic. Subjective Principal diagnosis: Foot ulcer Interval history: Patient denies any other pedal complaints. Patient states that he has noted improvement overall. Objective - Vital Signs Vital Signs: Vital Signs Temp Pulse Resp BP Pulse Ox 09/05/17 15:00 97.9 F 75 15 118/73 94 09/05/17 11:00 98.0 F 89 16 130/72 97 09/05/17 08:24 98.0 F 78 16 134/80 97 Intake and Output 09/05/17 09/05/17 09/05/17 07:59 15:59 23:59 Intake Total 200 / 200 560 / 560 240 / 240 Balance 200 / 200 560 / 560 240 / 240 Intake: IV Fluids 200 / 200 200 / 200 Zosyn Premix 3.375 GM/200 ML 3. 200 / 200 200 / 200 375 gm In 200 ml @ 50 mls/hr IVPB Q8HR MARGY Rx#:[id number] Oral 360 / 360 240 / 240 Other: Meal Lunch Dinner Percent of Meal Consumed 100% 100% # Voids 1 Blood Glucose* 206 190 - Exam Exam: Awake alert and oriented Pulses palpable DP/PT warm toes to tibia Sensation to moderate touch midfoot and proximal- minimal sensation to toes Cap refill <3 seconds No calf pain with manual compression Edema noted, non pitting Ulcerated areas sub mt head #5 remain unchanged since 09/03/17 assessment. After thorough inspection there was noted to be no deep abscess. No new drainage. No new lesions. No odor. Cellulitis is decreased with decreased warmth, tenderness, edema and erythema. Tenderness to palpation. No fluctance to palpation. - Lab Result Diagrams: 09/05/17 09:16 09/05/17 09:16 Labs: Abnormal lab results MCV 80.0 fL (83.0-100.0) L 09/05/17 09:16 MCH 27.1 pg (28.0-33.3) L 09/05/17 09:16 ESR 79 mm/hr (0-10) H 09/03/17 09:36 Glucose 210 mg/dL (70-105) H 09/05/17 09:16 POC Glucose 190 (58-89) H 09/05/17 16:05 Hemoglobin A1c 7.0 % (-5.6) H 09/04/17 03:49 Staphylococcus sp PCR DETECTED (Not Detect) A 09/03/17 11:27 mecA-Methicil Res Gene DETECTED (Not Detect) A 09/03/17 11:27 Consult Discharge Plan - Plan Referrals: Juan Kaufman MD [Primary Care Provider] -
[2017-09-06] MEDS: Nafcillin 3,000 MG in D5% in Water 100 ML IVPB SCH ×2 (02:53→19:56)
[2017-09-06 04:16] LABS: Basophils % 0.3 %; Eosinophils # 0.1 K/mcL (0.0-0.6); Hematocrit 43.4 % (37.5-50.1); Hemoglobin 14.7 g/dL (12.9-16.9); Immature Granulocytes % 0.4 % (0-4); Lymphocytes # 3.6 K/mcL (0.6-4.6); Lymphocytes % 31.7 %; Mean Corpuscular HGB Conc 33.9 g/dL (31.6-35.5); Mean Corpuscular Volume 79.6 fL (83.0-100.0); Mean Platelet Volume 9.3 fL (9.4-12.4); Monocytes # 0.9 K/mcL (0.0-1.3); Monocytes % 8.2 %; Neutrophils # 6.7 K/mcL (1.6-8.9); Platelet Count 276 K/mcL (140-400); Red Blood Count 5.45 M/mcL (4.19-5.50); Red Cell Distribution Width 13.1 % (11.5-14.5); Segmented Neutrophils % 58.4 %
[2017-09-06 04:51] LABS: BUN/Creatinine Ratio 14 (6-26); Blood Urea Nitrogen 10 mg/dL (6-20); Calcium 9.6 mg/dL (8.6-10.3); Carbon Dioxide 27 mEq/L (23-29); Chloride 101 mEq/L (98-107); Glucose 187 mg/dL (70-105); Osmolality,Calculated 284 (280-300); Sodium 135 mEq/L (136-145); eGFR For African Americans > 60 (> 60); eGFR For Non-African Americans > 60 (> 60)
[2017-09-06] MEDS: *HR* Heparin 5,000 UNIT/ML VIAL SQ SCH ×2 (05:19→17:19)
[2017-09-06] MEDS ORDERED: Vancomycin 2,000 MG in D5% in Water 250 ML IVPB SCH (09:00)
[2017-09-06] MEDS ORDERED: Vancomycin 2,000 MG in D5% in Water 500 ML IVPB SCH (09:00)
--- NOTE | 2017-09-06 09:40 | Internal Med Progress Note ---
Date of Encounter: 09/06/17 Time of Encounter: 09:38 - Assessment and plan (1) Cellulitis of fifth toe of left foot Current Visit: Yes Status: Acute Assessment and plan: s/p I & D Wound cx- growing staph aureus - MSSA Blood cx - 1/2 positive for staph..mostly contaminated Repeat blood cx ordered today 2D Echo - P MRI of Foot - noticed small fluid collection at 5th MTP joint. mild bone marow edema over 5th metatarsal bone, concerned for osteomyelitis Pouncer on board Cont Nafcillin abx x 6 weeks course Spoke to Dr. Beckford, recommend to treat with IV abx and f/u with them as an out pt (2) Sepsis Current Visit: Yes Status: Acute Assessment and plan: He did meet mild sepsis / SIRS criteria with elevated WBC, source of inf as diabetic foot ulcer on Nafcillin Improving Qualifiers: Sepsis type: methicillin susceptible Staphylococcus aureus Qualified Code(s ): A41.01 - Sepsis due to Methicillin susceptible Staphylococcus aureus (3) Diabetes Current Visit: Yes Status: Acute Assessment and plan: pt stated lately his BS are well controlled at home His current HbA1C 7.0 fairly controlled now.. changed ISS to home regimen Inc Levemir to 30 U BID Also added meal time Insulin with Lispro 5 U TID Holding PO meds for now Qualifiers: Diabetes mellitus type: type 2 Diabetes mellitus complication status: with unspecified complications Diabetes mellitus jail insulin use: with jail use Qualified Code(s): E11.8 - Type 2 diabetes mellitus with unspecified complications; Z79.4 - group home (current) use of insulin; Z79.4 - termite helper ( current) use of insulin; Z79.4 - termite helper (current) use of insulin; Z79.4 - termite helper (current) use of insulin (4) HTN (hypertension) Current Visit: Yes Status: Acute Assessment and plan: resumed home meds Qualifiers: Hypertension type: essential hypertension Qualified Code(s): I10 - Essential (primary) hypertension - Subjective Interval history: Mr. Aguilar is a 36 year old male with a PMH of DM, and HTN. No prior h/o MRSA. He presents to [facility] ER with Lt foot pain/tenderness and redness. He reports that he has had a chronic wound on the left 4th metatarsal that Dr. beckford has been managing. He Reports a debridement was completed on the fourth metatarsal and he was okayed to return to work. However, upon return to work he began experiencing an increase in pain and swelling extending into the fourth and fifth metatarsal as well as going up his sole and towards the arch of the foot. Pt was admitted in the hospital and started him on empirical abx with IV Zosyn and Vancomycin. He was seen by Dr. Beckford, who did I & D on 09/03/17. Today he is feeling much better. Swelling and erythema over Left foot plantar region improved. Denied any pain - Constitutional Vitals: Temp Pulse Resp BP Pulse Ox 97.8 F 80 15 131/82 94 09/06/17 06:57 09/06/17 06:57 09/06/17 06:57 09/06/17 06:57 09/06/17 06:57 General appearance: Present: cooperative, A&O X 3, no acute distress, answers questions appropriately - Head Head exam: Present: atraumatic, normal inspection - Neck Neck exam general surgery: Present: supple - Respiratory Respiratory exam: Present: CTAB. Absent: rales, respiratory distress, rhonchi, wheezes - Cardiovascular Cardiovascular exam: Present: RRR, +S1, +S2. Absent: diastolic murmur, gallop, rubs, systolic murmur - GI/Abdominal GI/Abdominal exam: Present: normal bowel sounds, soft. Absent: tenderness - Extremities Exam Extremities exam: Absent: calf tenderness, pedal edema, tenderness Additional comments: 1.5cm open wound at the bottom of Left 4th metatarsal.. nice granulation tissue noticed over the wound bed. improved erythema and swelling over Left foot arch noticed - Neurological Exam Neurological exam: Present: alert, oriented X3 - Psychiatric Psychiatric exam: Present: normal affect, normal mood Internal Medicine: Result - Labs CBC & Chem 7: 09/06/17 04:03 09/06/17 04:03 Labs: Short CBC 09/06/17 Range/Units 04:03 WBC 11.4 H (4.3-11.1) K/mcL Hgb 14.7 (12.9-16.9) g/dL Hct 43.4 (37.5-50.1) % Plt Count 276 (140-400) K/mcL Neutrophils # 6.7 (1.6-8.9) K/mcL BMP 09/05/17 09/06/17 09:16 04:03 Sodium 136 135 L Potassium 4.5 4.0 Chloride 102 101 Carbon Dioxide 29 27 BUN 10 10 Creatinine 0.79 0.74 Glucose 210 H 187 H Calcium 9.5 9.6 Consult Discharge Plan - Plan Referrals: Juan Kaufman MD [Primary Care Provider] -
[2017-09-06] MEDS: Insulin DETEMIR 100 UNIT/ML X5UNITS SQ SCH ×2 (10:40→22:25)
[2017-09-06] MEDS: Insulin LISPRO 300 UNITS/3 ML VIAL SQ SCH ×5 (10:41→17:19)
[2017-09-06] MEDS: D5 IVPB SCH (11:00)
[2017-09-06] MEDS: WATER IVPB SCH (11:00)
[2017-09-06] MEDS: NAFCILLIN IVPB SCH (11:00)
[2017-09-06] MEDS ORDERED: Lidocaine -MPF 1% 5 ML AMPUL INFILT ONE (11:28)
--- NOTE | 2017-09-06 12:49 | Podiatry Progress Note ---
Date of Encounter: 09/06/17 Time of Encounter: 12:00 - Assessment and Plan (1) Diabetic foot ulcer Current Visit: Yes Status: Acute Assessment: Chronic diabetic foot ulcer new new acute infection and cellulitis - tracked lesion medial to chronic lesion Plan: I&D complete at bedside on 09/03/17 of chronic ulceration and bulla to release drainage, assess underlying wound bed and allow for healing Improvement noted to wounds and cellulitis today- much improved in appearance- minimal warmth or surrounding erythema. Ulcer remains stable upon assessment today- no new noted drainage or lesions. MRI shows possible osteo, small superficial abscess, ID on board- will treat with 6 weeks naficillin therapy and follow with podiatry outpatient Wound cultures show MSSA Patient to ambulate with CAM walker to offload pressure as much as possible. Stay off of foot whenever possible. Call with any fevers, chills, n/v or flu like symptoms. New dressing placed, adaptic, 4x4 and kerlex. Qualifiers: Diabetic foot ulcer location: other Diabetes mellitus type: type 2 Laterality: left Non-pressure ulcer stage: with fat layer exposed Qualified Code(s): E11.621 - Type 2 diabetes mellitus with foot ulcer; L97.522 - Non- pressure chronic ulcer of other part of left foot with fat layer exposed; L97.522 - Non-pressure chronic ulcer of other part of left foot with fat layer exposed; L97.522 - Non-pressure chronic ulcer of other part of left foot with fat layer exposed; L97.522 - Non-pressure chronic ulcer of other part of left foot with fat layer exposed (2) Cellulitis of fifth toe of left foot Current Visit: Yes Status: Acute 6 weeks IV naficillin per PICC per ID (3) Diabetes Current Visit: Yes Status: Acute strict glucose control Qualifiers: Diabetes mellitus type: type 2 Diabetes mellitus complication status: with unspecified complications 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 Patient had bedside I&D on 09/03/17. He also underwent an US and MRI of the extremity. MRI indicates small superficial abscess and possible osteomyelitis of the 5th metatarsal. At this time patient will have PICC placed for 6 weeks antibiotic therapy. Patient resting comfortably on arrival with dressing intact. Denies any complaints at this time in relation to his foot. Patient denies any known fevers chills n/v or flu like symptoms WBC 11.4/temp 97.3/Cultures MSSA/Naficillin IVabx Objective - Vital Signs Vital Signs: Vital Signs Temp Pulse Resp BP Pulse Ox 09/06/17 06:57 97.8 F 80 15 131/82 94 09/06/17 04:54 97.4 F L 82 16 128/80 98 09/05/17 21:11 98.0 F 85 16 147/78 96 09/05/17 15:00 97.9 F 75 15 118/73 94 Intake and Output 09/05/17 09/06/17 09/06/17 23:59 07:59 15:59 Intake Total 240 / 240 350 / 350 480 / 480 Balance 240 / 240 350 / 350 480 / 480 Intake: Oral 240 / 240 350 / 350 480 / 480 Other: Meal Dinner Breakfast Percent of Meal Consumed 100% 100% # Voids 2 Weight 131.542 kg Blood Glucose* 238 213 Patient Weight 09/06/17 23:59 Weight 131.542 kg - Exam Exam: Awake alert and oriented Pulses palpable DP/PT warm toes to tibia Sensation to moderate touch midfoot and proximal- minimal sensation to toes Cap refill <3 seconds No calf pain with manual compression Edema noted, non pitting Ulcerated areas sub mt head #5 remain unchanged since 09/03/17 assessment. Cellulitis has improved in appearance. Minimal warmth, erythema or edema noted to mid foot. No palpable fluctuance. no drainage to ulcerations. - Lab Result Diagrams: 09/06/17 04:03 09/06/17 04:03 Labs: Abnormal lab results WBC 11.4 K/mcL (4.3-11.1) H 09/06/17 04:03 MCV 79.6 fL (83.0-100.0) L 09/06/17 04:03 MCH 27.0 pg (28.0-33.3) L 09/06/17 04:03 MPV 9.3 fL (9.4-12.4) L 09/06/17 04:03 ESR 79 mm/hr (0-10) H 09/03/17 09:36 Sodium 135 mEq/L (136-145) L 09/06/17 04:03 Glucose 187 mg/dL (70-105) H 09/06/17 04:03 POC Glucose 274 (58-89) H 09/06/17 12:07 Hemoglobin A1c 7.0 % (-5.6) H 09/04/17 03:49 Staphylococcus sp PCR DETECTED (Not Detect) A 09/03/17 11:27 mecA-Methicil Res Gene DETECTED (Not Detect) A 09/03/17 11:27 Consult Discharge Plan - Plan Referrals: Juan Kaufman MD [Primary Care Provider] - Prescriptions: Nafcillin 12,000 mg IV DAILY 41 Days #50 vial
--- NOTE | 2017-09-06 15:53 | Infectious Disease Progress No ---
Date of Encounter: 09/06/17 Time of Encounter: 15:51 - Assessment and Plan (1) Sepsis Status: Acute Patient was tachycardic, leukocytosis 13.7 on admission. Tachycardia and leukocytosis has resolved. Sepsis secondary to cellulitis of left foot with history of chronic left foot ulceration in the setting of diabetes Qualifiers: Sepsis type: methicillin susceptible Staphylococcus aureus Qualified Code(s ): A41.01 - Sepsis due to Methicillin susceptible Staphylococcus aureus (2) Cellulitis of fifth toe of left foot Status: Acute Patient reports having callus on plantar aspect of left foot at the fifth MTP. X-ray of left foot was negative for infection, abnormality. Ultrasound of left lower extremity noted cellulitis versus abscess. MRI of the left lower extremity showed fifth MTP joint soft tissue ulceration without sinus tract with bone marrow edema possible osteomyelitis. Status post bedside I&D by podiatry Blood cultures negative. Wound culture positive for MSSA Patient started on vancomycin and Zosyn on 09/03 and transitioned on 09/05/2017 to nafcillin 12,000 mg continuous pump daily. Patient pain, redness has improved since admission. He is able to bear weight on his left foot. Plan: She will be on nafcillin for 6 weeks from 09/03/17. Follow-up with podiatry outpatient. He will need weekly CBC, BMP, ESR and CRP. Follow up with infectious disease outpatient in 2 weeks. (3) Diabetic foot ulcer Status: Acute Plan as above. Patient needs strict glycemic control for proper healing of his wound. Qualifiers: Diabetic foot ulcer location: other Diabetes mellitus type: type 2 Laterality: left Non-pressure ulcer stage: with fat layer exposed Qualified Code(s): E11.621 - Type 2 diabetes mellitus with foot ulcer; L97.522 - Non- pressure chronic ulcer of other part of left foot with fat layer exposed; L97.522 - Non-pressure chronic ulcer of other part of left foot with fat layer exposed; L97.522 - Non-pressure chronic ulcer of other part of left foot with fat layer exposed; L97.522 - Non-pressure chronic ulcer of other part of left foot with fat layer exposed (4) Diabetes Status: Acute A1c 7.0. Diabetes mellitus is under controlled. Qualifiers: Diabetes mellitus type: type 2 Diabetes mellitus complication status: with unspecified complications Diabetes mellitus joint terminal attack controller insulin use: with joint terminal attack controller use Qualified Code(s): E11.8 - Type 2 diabetes mellitus with unspecified complications; Z79.4 - halfway (current) use of insulin; Z79.4 - terminal clerk ( current) use of insulin; Z79.4 - terminal clerk (current) use of insulin; Z79.4 - halfway (current) use of insulin (5) HTN (hypertension) Status: Acute Controlled. Qualifiers: Hypertension type: essential hypertension Qualified Code(s): I10 - Essential (primary) hypertension (6) DVT prophylaxis Status: Acute Heparin subcutaneous. - Subjective Interval history: This morning patient does not have any complaints. Denies any lower extremity pain. He denies chills, night sweats. He is afebrile. Infect Dis PN-Objective Data - Labs CBC & Chem 7: 09/06/17 04:03 09/06/17 04:03 Labs: Laboratory Results - last 24 hr 09/05/17 09/05/17 09/06/17 16:05 21:09 04:03 WBC 11.4 H RBC 5.45 Hgb 14.7 Hct 43.4 MCV 79.6 L MCH 27.0 L MCHC 33.9 RDW 13.1 Plt Count 276 MPV 9.3 L Immature Gran % 0.4 Seg Neutrophils % 58.4 Lymphocytes % 31.7 Monocytes % 8.2 Eosinophils % 1.0 Basophils % 0.3 Neutrophils # 6.7 Lymphocytes # 3.6 Monocytes # 0.9 Eosinophils # 0.1 Basophils # 0.0 Sodium Potassium Chloride Carbon Dioxide BUN Creatinine Est GFR ( Amer) Est GFR (Non-Af Amer) BUN/Creatinine Ratio Glucose POC Glucose 190 H 238 H Calculated Osmolality Calcium 09/06/17 09/06/17 09/06/17 04:03 07:01 12:07 WBC RBC Hgb Hct MCV MCH MCHC RDW Plt Count MPV Immature Gran % Seg Neutrophils % Lymphocytes % Monocytes % Eosinophils % Basophils % Neutrophils # Lymphocytes # Monocytes # Eosinophils # Basophils # Sodium 135 L Potassium 4.0 Chloride 101 Carbon Dioxide 27 BUN 10 Creatinine 0.74 Est GFR ( Amer) > 60 Est GFR (Non-Af Amer) > 60 BUN/Creatinine Ratio 14 Glucose 187 H POC Glucose 213 H 274 H Calculated Osmolality 284 Calcium 9.6 09/06/17 15:40 WBC RBC Hgb Hct MCV MCH MCHC RDW Plt Count MPV Immature Gran % Seg Neutrophils % Lymphocytes % Monocytes % Eosinophils % Basophils % Neutrophils # Lymphocytes # Monocytes # Eosinophils # Basophils # Sodium Potassium Chloride Carbon Dioxide BUN Creatinine Est GFR ( Amer) Est GFR (Non-Af Amer) BUN/Creatinine Ratio Glucose POC Glucose 211 H Calculated Osmolality Calcium - Impressions Impressions Echocardiogram 09/06/17 16:17 Impressions: LVEF 60%. Mild left ventricular diastolic dysfunction. Normal right ventricular structure and function. No significant valvular dysfunction. No pulmonary hypertension. Vegetations are not identified on this study. Left Ventricular Wall Motion: Rest Echo Findings All wall segments showed normal motion. Findings: Study Quality * Technically adequate exam. ECG Findings * Normal sinus rhythm. Left Ventricle * LVEF 60%. * Normal LV chamber size, wall thickness and function. * Mild left ventricular diastolic dysfunction. Right Ventricle * Normal right ventricular structure and function. Left Atrium * Normal left atrial size. Right Atrium * Normal right atrial size. Aortic Valve * No aortic regurgitation. * Trileaflet aortic valve. No vegetation. * No aortic stenosis. Mitral Valve * Normal mitral valve structure. No vegetation. * No mitral regurgitation. * No mitral stenosis. Tricuspid Valve * Tricuspid valve not well visualized in all images provided. In views visualized, there is no evidence for vegetation. * No tricuspid regurgitation. Pulmonic Valve * No pulmonic stenosis. * Normal pulmonic valve structure. No vegetation. * Trace pulmonic regurgitation. Pulmonary Artery * Normal visualized portions of the main pulmonary artery. Aorta * Normally sized aortic root. Pericardium * There is no pericardial effusion present. Interatrial Septum * No evidence of PFO by color Doppler. IVC * The IVC is not well evaluated. Exam - Constitutional Vitals: Temp Pulse Resp BP Pulse Ox 97.7 F 89 15 144/84 95 09/06/17 15:34 09/06/17 15:34 09/06/17 15:34 09/06/17 15:34 09/06/17 15:34 - Additional findings Additional findings: General: without distress, obese Heart: Regular rate and rhythm with no murmur Lungs: Clear to auscultation bilaterally Abdomen: Soft nontender, nondistended positive bowel sounds Skin: warm and dry. Erythema of the plantar aspect of left foot. Diabetic ulcer on plantar aspect of left foot at the fifth MTP. improved from yesterday Extremities: Absent pedal edema, there is no pain to palpation the patient's left foot. Neuro: Alert and oriented 3. Vascular: Pedal and radial pulses 2 out of 4 Consult Discharge Plan - Plan Additional Instructions: Please go for weekly CBC, CMP, ESR and CRP. Follow up with infectious disease outpatient in 2 weeks Please keep ambulate with CAM walker to offload pressure as much as possible. Stay off of foot whenever possible. Referrals: Josue Beckford DPM [Partnered Physician] - Katherine Coppola MD [Partnered Physician] - Juan Kaufman MD [Primary Care Provider] - Prescriptions: Nafcillin 12,000 mg IV DAILY 41 Days #50 vial - Attending Attestation I examined this patient and my medical decision-making was reviewed with the Resident Physician. I agree with the documented findings, disposition and treatment plan as described except to the extent set forth below.
[2017-09-06] MEDS: Piperacillin/Tazobactam 3.375 GM/200 ML BAG IVPB SCH (19:58)
[2017-09-07] MEDS: *HR* Heparin 5,000 UNIT/ML VIAL SQ SCH (05:56)
[2017-09-07] MEDS: Insulin LISPRO 300 UNITS/3 ML VIAL SQ SCH ×4 (07:59→11:37)
[2017-09-07] MEDS: Insulin DETEMIR 100 UNIT/ML X5UNITS SQ SCH (08:00)
[2017-09-07 11:35] VITALS: BP 128/73
[2017-09-07] MEDS: WATER IVPB SCH (11:35)
[2017-09-07] MEDS: NAFCILLIN IVPB SCH (11:35)
[2017-09-07] MEDS: D5 IVPB SCH (11:35)
--- NOTE | 2017-09-07 11:57 | Discharge Summary ---
Date of Encounter: 09/07/17 Time of Encounter: 11:53 - Discharge Diagnosis (1) Cellulitis of fifth toe of left foot Priority: Primary Status: Acute (2) Osteomyelitis of left foot Priority: Primary Status: Acute Qualifiers: Qualified Code(s): M86.9 - Osteomyelitis, unspecified (3) Sepsis Priority: Primary Status: Acute Qualifiers: Sepsis type: methicillin susceptible Staphylococcus aureus Qualified Code(s ): A41.01 - Sepsis due to Methicillin susceptible Staphylococcus aureus (4) Diabetes Priority: Secondary Status: Acute Qualifiers: Diabetes mellitus type: type 2 Diabetes mellitus complication status: with unspecified complications Diabetes mellitus usp insulin use: with terminal manager use Qualified Code(s): E11.8 - Type 2 diabetes mellitus with unspecified complications; Z79.4 - retirement (current) use of insulin; Z79.4 - retirement ( current) use of insulin; Z79.4 - terminal manager (current) use of insulin; Z79.4 - terminal manager (current) use of insulin (5) HTN (hypertension) Priority: Secondary Status: Acute Qualifiers: Hypertension type: essential hypertension Qualified Code(s): I10 - Essential (primary) hypertension - Discharge Medications Prescriptions: Nafcillin 12,000 mg IV DAILY 41 Days #50 vial Home Medications: Lisinopril [Zestril] 10 mg PO DAILY 07/10/16 [History] Sitagliptin Phos/Metformin HCl [Janumet 50-1,000 mg Tablet] 1 each PO DAILY [History] Insulin LISPRO [Humalog Kwikpen U-100] 0 unit SQ AD 09/03/17 [History] Nafcillin 12,000 mg IV DAILY 41 Days #50 vial 09/06/17 [Rx] Insulin Glargine/Lixisenatide [Soliqua 100 Unit-33 Mcg/ml Pen] 30 units SQ BID # 0 09/07/17 [Rx] Allergies/Adverse Reactions: 3 Allergy/AdvReac Type Severity Reaction Status Date / Time No Known Allergies Allergy Verified 09/03/17 08:45 Procedures/tests Complete & Pending: Procedures Performed prior 72 hours Category Date Time Status US extremity nonvascular LT [US] Stat Exams 09/04/17 11:00 Completed MR foot LT wo/w con [MR] Stat MRI 09/04/17 15:39 Completed EV ankle brachial index BI Stat Y 09/05/17 09:01 Completed EV echocardiogram Routine Y 09/06/17 16:17 Completed Date of admission: 09/03/17 16:33 Primary care physician: Juan Kaufman MD Consults: 09/05/17 12:11 Consult to Lead Producer [CONS] Routine Reason for SW Consult: Inquiries about outpatient resources 09/05/17 13:39 Consult to Infectious Diseases [CONS] Routine Consulting Provider: Infectious Disease Nicolette Reason for Consult: Osteomyelitis Call Completed: Yes 09/06/17 11:28 Consult to Invasive Line Access Team [CONS] Routine Reason for Consult: Picc Line Insertion Line Type: PICC - Patient Status Disposition: Home Health Service Condition: Good Overall status at discharge: patient is back to baseline - Discharge Instructions Follow Up With: Juan Kaufman MD [Primary Care Provider] - Josue Wild DPM [Partnered Physician] - Katherine Coppola MD [Partnered Physician] - Additional Instructions: Please go for weekly CBC, CMP, ESR and CRP. Follow up with infectious disease outpatient in 2 weeks Please keep ambulate with CAM walker to offload pressure as much as possible. Stay off of foot whenever possible. - Diet and Activity Activity: increase activity as tolerated Diet: diabetic diet, low salt diet Hospital course: Mr. Aguilar is a 36 year old male with a PMH of DM, and HTN. No prior h/o MRSA. He presents to [facility] ER with Lt foot pain/tenderness and redness. He reports that he has had a chronic wound on the left 4th metatarsal that Dr. wild has been managing. He Reports a debridement was completed on the fourth metatarsal and he was okayed to return to work. However, upon return to work he began experiencing an increase in pain and swelling extending into the fourth and fifth metatarsal as well as going up his sole and towards the arch of the foot. Pt was admitted in the hospital and started him on empirical abx with IV Zosyn and Vancomycin. He was seen by Dr. Wild, who did I & D on 09/03/17. His wound cx grew MSSA. Pt was switched to Nafcillin abx. His blood cx 1/2 sets came back as positive for G+ve cocci, which might be contaminated. His repeat blood cx from y/d did not show any growth. His MRI of foot showed small fluid collection at 5th MTP joint. mild bone marow edema over 5th metatarsal bone, concerned for osteomyelitis. At this point cassandra consultant Dr. Wild recommend to continue IV abx for 6 weeks and close f/u with him as an out pt. His 2 D Echo did not show any vegetation , preserved LVEF. - Time Spent with Patient Total time spent providing and/or coordinating discharge services: - Constitutional Vitals: Temp Pulse Resp BP Pulse Ox 97.6 F 84 14 128/73 96 09/07/17 11:33 09/07/17 11:33 09/07/17 11:33 09/07/17 11:33 09/07/17 11:33 General appearance: Present: cooperative, A&O X 3, no acute distress, answers questions appropriately - Head Head exam: Present: atraumatic, normal inspection - Extremities Exam Additional comments: Improved erythema and swelling over Left foot. No tenderness noticed
--- NOTE | 2017-09-07 12:04 | Physician Discharge Referral ---
Home Health/Hosp Referral Info Transfer to: Home Health Provider in Charge Post Discharge: PCP - Diagnosis (1) Cellulitis of fifth toe of left foot Status: Acute (2) Osteomyelitis of left foot Status: Acute (3) Sepsis Status: Acute (4) Diabetes Status: Acute (5) HTN (hypertension) Status: Acute - Respiratory Orders Smoking Cessation: Smoking cessation has been advised. For more information, call the [employer] Quit Line at 1-879-WBIQ-NOW. - Services Needed Following services are medically necessary services: Nursing (need weekly CBC, CMP, ESR and CRP) - Transfer Medications Prescriptions: Nafcillin 12,000 mg IV DAILY 41 Days #50 vial Home Medications: Lisinopril [Zestril] 10 mg PO DAILY 07/10/16 [History] Sitagliptin Phos/Metformin HCl [Janumet 50-1,000 mg Tablet] 1 each PO DAILY [History] Insulin LISPRO [Humalog Kwikpen U-100] 0 unit SQ AD 09/03/17 [History] Nafcillin 12,000 mg IV DAILY 41 Days #50 vial 09/06/17 [Rx] Insulin Glargine/Lixisenatide [Soliqua 100 Unit-33 Mcg/ml Pen] 30 units SQ BID # 0 09/07/17 [Rx] Allergies/Adverse Reactions: 3 Allergy/AdvReac Type Severity Reaction Status Date / Time No Known Allergies Allergy Verified 09/03/17 08:45 Certification: Further, I certify that my clinical findings support that this patient is homebound (i.e. absences from home require considerable and taxing effort and are for medical reasons or zoroastrianism services or infrequently or short duration when for other reasons) because: Homebound Reason: Patient requires assistance of a person or device to safely leave home Attestation: My signature below is to certify that this patient is under my care and that I, or nurse practitioner, or a physician's customer service assistant working with me, has a face-to -face encounter with this patient.
== END 2017-09-07 12:25 | disposition home health service (06) | DRG 872 ==
LOC: EMEROO 08:41 → 3ANU 08:41 → SUATTDRO 16:33
PROVIDERS: ADMIT Internal Medicine; ATTEND Family Medicine